=== PATIENT | female | born 1970 | race African-American/Black ===

== ENCOUNTER 2024-03-04 14:27 | Outpatient (CLI) | payer BC | END 2024-03-04 14:28 | disposition home or self-care (01) | LOC: CSHCT 14:27 | PROVIDERS: ATTEND Family Medicine | DX: N20.0 Calculus of kidney (principal); K76.9 Liver disease, unspecified | CPT/HCPCS: 74176 ==

== ENCOUNTER 2024-03-04 14:59 | Outpatient (CLI) | payer BC | END 2024-03-04 15:00 | disposition home or self-care (01) | LOC: CSHMAMMO 14:59 | PROVIDERS: ATTEND Family Medicine | DX: Z12.31 Encounter for screening mammogram for malignant neoplasm of breast (principal) | CPT/HCPCS: 77063; 77067 ==

== ENCOUNTER 2024-03-20 08:30 | Outpatient (CLI) | payer BC | END 2024-03-20 08:31 | disposition home or self-care (01) | LOC: CSHULT 08:30 | PROVIDERS: ATTEND Family Medicine | DX: K76.89 Other specified diseases of liver (principal) | CPT/HCPCS: 76705 ==